=== PATIENT | female | born 1945 | race Caucasian/White ===

== ENCOUNTER 2018-08-28 11:06 | Outpatient (CLI) | payer MEDICARE ==
[~2018-08-28 11:06] MED LIST: ACET-1025 PO; ASPI-1053 PO; CALC-1197 PO; CHOL100024 PO; MIRT30TA8 PO; OMEG1CAP46 PO; PNV91TAB3 PO; SIMV40TA4 PO; UMEC1DIS INH; WARF-55 PO
[2018-08-28] MEDS ORDERED: iohexol 300mg/ml 100ml inj. ONE (11:33)
== END 2018-08-28 23:59 | disposition home or self-care (01) ==
LOC: 64 CT 11:06
PROVIDERS: ATTEND Nurse Practitioner Family
DX: K57.30 Diverticulosis of large intestine without perforation or abscess without bleeding (principal); J43.9 Emphysema, unspecified; R63.4 Abnormal weight loss; I48.91 Unspecified atrial fibrillation; D72.829 Elevated white blood cell count, unspecified; F17.200 Nicotine dependence, unspecified, uncomplicated; Z90.49 Acquired absence of other specified parts of digestive tract; Z90.710 Acquired absence of both cervix and uterus
CPT/HCPCS: 74178; Q9967